=== PATIENT | female | born 1995 | race Two or more races ===

== ENCOUNTER 2017-05-10 00:56 | Emergency (ER) | payer MEDICAID ==
[~2017-05-10] VITALS: Ht 167.6 cm; Wt 83.9 kg
[2017-05-10 02:31] LABS: Urine Bacteria NONE SEEN /hpf (None Seen); Urine Blood 3+ /uL (Negative); Urine Mucus FEW (None Seen); Urine Specific Gravity 1.028 (1.001-1.035); Urine WBC 109 /hpf (0 - 5)
[2017-05-10 03:45] LABS: Basophils # (auto) 0 uL; Basophils % (auto) 0.2 % (0.0-2.0); Eosinophils # (auto) 0.1 uL; Eosinophils % (auto) 0.3 % (0.0-7.0); Hematocrit 34.3 % (36.0-46.0); Hemoglobin 11.3 g/dL (12.2-16.2); Lymphocytes # (auto) 2.1 uL; Lymphocytes % (auto) 11.1 % (10.0-50.0); Mean Corpuscular Hemoglobin 27.9 pg (28.0-32.0); Mean Corpuscular Hgb Conc. 32.9 g/dL (32.0-36.0); Mean Corpuscular Volume 84.7 fL (80.0-100.0); Monocytes # (auto) 0.9 uL; Monocytes % (auto) 4.9 % (0.0-12.0); Neutrophils # (auto) 15.8 uL; Neutrophils % (auto) 83.5 % (37.0-80.0); Platelet Count (auto) 419 10^3/uL (140-450); Red Blood Cells 4.05 10^6/uL (4.0-5.20); Red Cell Distribution Width 14.1 % (11.8-14.3); White Blood Cell 18.9 10^3/uL (4.4-10.8)
[2017-05-10 04:06] LABS: Albumin 3.9 g/dL (3.4-5.0); BUN/Creatinine Ratio 12.8; Bilirubin, Total 0.7 mg/dL (0.2-1.0); Calcium 8.5 mg/dL (8.5-10.1); Potassium 4.6 mmol/L (3.5-5.1); Total Protein 8.7 g/dL (6.4-8.2)
[2017-05-10 07:37] VITALS: BP 125/78
== END 2017-05-10 09:09 | disposition home or self-care (01) ==
LOC: ER 00:56
DX: N39.0 Urinary tract infection, site not specified (principal); N92.4 Excessive bleeding in the premenopausal period; N93.9 Abnormal uterine and vaginal bleeding, unspecified
CPT/HCPCS: 36415; 76856; 80053; 81001; 84702; 85025